=== PATIENT | male | born 1965 | race Caucasian/White ===

== ENCOUNTER 2025-03-27 07:52 | Emergency (ER) | payer OTHER ==
[~2025-03-27] VITALS: Ht 170.2 cm; Wt 66.0 kg
[2025-03-27 08:05] VITALS: TEMP 98
[2025-03-27 08:40] VITALS: BP 129/80; PULSE 80; RESP 17; O2SAT 98
[2025-03-27] MEDS: LIDOCAINE 1% 10 ML VIAL SQ ONE (09:13)
[2025-03-27] MEDS: IBUPROFEN 600 MG TABLET PO ONE (09:16)
[2025-03-27] MEDS: ACETAMINOPHEN 500 MG TABLET PO ONE (09:16)
[2025-03-27] MEDS: BACITRACIN 0.9 GM PACKET OINTMENT TP ONE (09:16)
[2025-03-27] MEDS: BUPRENORPHINE HCL/NALOXONE HCL 8-2 MG SUBLINGUAL TABLET SL ONE (09:25)
== END 2025-03-27 10:33 ==
LOC: EMS 07:57
DX: S01.81XA Laceration without foreign body of other part of head, initial encounter (principal); Z65.3 Problems related to other legal circumstances; Z59.00 Homelessness unspecified; Y04.0XXA Assault by unarmed brawl or fight, initial encounter; Y93.89 Activity, other specified; Y92.89 Other specified places as the place of occurrence of the external cause; Y99.8 Other external cause status
CPT/HCPCS: 12014; 70450; 72125; 99284